=== PATIENT | male | born 1955 | race African-American/Black ===

== ENCOUNTER 2021-08-20 12:15 | Inpatient (IN) | payer OTHER ==
[2021-08-20] MEDS ORDERED: diazePAM 5 MG TABLET PO PRN ×2 (14:33→14:42)
[2021-08-20] MEDS ORDERED: METHOCARBAMOL 500 MG TABLET PO PRN (14:33)
[2021-08-20] MEDS ORDERED: ACETAMINOPHEN 325 MG TABLET (FP) PO PRN ×4 (14:33→14:42)
[2021-08-20] MEDS ORDERED: NICOTINE 10 MG CARTRIDGE (INHALER) IH PRN ×2 (14:33→14:42)
[2021-08-20] MEDS ORDERED: ONDANSETRON *ODT* 4 MG TABLET SL PRN ×2 (14:33→14:42)
[2021-08-20] MEDS ORDERED: MAGNESIUM CITRATE 300 ML BOTTLE PO PRN ×2 (14:33→14:42)
[2021-08-20] MEDS ORDERED: IBUPROFEN 400 MG TABLET (FP) PO PRN (14:33)
[2021-08-20] MEDS ORDERED: BISMUTH SUBSALICYLATE 524 MG/30 ML PO PRN ×2 (14:33→14:42)
[2021-08-20] MEDS ORDERED: MENTHOL/PHENOL 1 EACH UD MM PRN ×2 (14:33→14:42)
[2021-08-20] MEDS ORDERED: MAGNESIUM HYDROX 2400MG/30ML ORAL SUSPENSION 30 ML CUP PO PRN ×2 (14:33→14:42)
[2021-08-20] MEDS ORDERED: MAG HYDROX/AL HYDROX/SIMETH 30 ML UNIT-DOSE CUP PO PRN ×2 (14:33→14:42)
[2021-08-20 15:19] VITALS: BMI 23.2
[2021-08-20] MEDS ORDERED: METHOCARBAMOL 500 MG TABLET ONE (16:36)
[2021-08-20] MEDS: METHOCARBAMOL 500 MG TABLET PO PRN (16:38)
[2021-08-20] MEDS ORDERED: diazePAM 5 MG TABLET PO SCH (17:00)
[2021-08-20] MEDS: diazePAM 5 MG TABLET PO SCH ×2 (18:00→22:40)
[2021-08-20] MEDS ORDERED: hydrOXYzine PAMOATE 25 MG CAPSULE (FP) PO SCH (18:00)
[2021-08-20] MEDS: hydrOXYzine PAMOATE 25 MG CAPSULE (FP) PO SCH ×2 (18:40→22:40)
[2021-08-20] MEDS ORDERED: MELATONIN 5 MG TABLETS PO SCH (22:00)
[2021-08-20] MEDS ORDERED: THIAMINE HCL 100 MG TABLET (FP) PO SCH (22:00)
[2021-08-20] MEDS: THIAMINE HCL 100 MG TABLET (FP) PO SCH (22:39)
[2021-08-20] MEDS: MELATONIN 5 MG TABLETS PO SCH (22:39)
[2021-08-21] MEDS: diazePAM 5 MG TABLET PO SCH ×4 (05:47→23:42)
[2021-08-21] MEDS: hydrOXYzine PAMOATE 25 MG CAPSULE (FP) PO SCH ×5 (05:47→23:43)
[2021-08-21] MEDS: IBUPROFEN 400 MG TABLET (FP) PO PRN (05:59)
[2021-08-21] MEDS: METHOCARBAMOL 500 MG TABLET PO PRN (06:00)
[2021-08-21] MEDS: ABACAVIR/DOLUTEGRAVIR/LAMIVUDI (TRIUMEQ) TABLET -NF PO SCH (07:16)
[2021-08-21] MEDS ORDERED: PRENATAL VITAMINS W/ FOLIC ACID TABLET (FP) PO SCH (10:00)
[2021-08-21] MEDS: PRENATAL VITAMINS W/ FOLIC ACID TABLET (FP) PO SCH (10:54)
[2021-08-21 13:41] LABS: HEMATOCRIT 32.2 % (35.4-49); HEMOGLOBIN 10.8 GM/dL (11.7-16.9); MCH 32.9 pg (25.7-33.7); MCHC 33.4 g/dl (32.0-35.9); MEAN CELL VOLUME 98.4 fl (80-96); MEAN PLT VOLUME 8.6 fl (7.5-11.1); PLATELET COUNT 197 10^3/uL (134-434); RBC 3.28 M/mm3 (4.00-5.60); RDW 13.5 % (11.9-15.9); WHITE BLOOD COUNT 2.8 K/mm3 (4.0-10.0)
[2021-08-21 13:48] LABS: ALBUMIN 2.9 g/dl (3.4-5.0); BLOOD UREA NITROGEN 13.5 mg/dL (7-18); CALCIUM 8.2 mg/dL (8.5-10.1)
[2021-08-21 13:52] LABS: CREATININE 0.9 mg/dL (0.55-1.3)
[2021-08-21 13:54] LABS: BILIRUBIN,TOTAL 0.6 mg/dL (0.2-1); TOT PROT 5.7 g/dl (6.4-8.2)
[2021-08-21] MEDS: MELATONIN 5 MG TABLETS PO SCH (23:42)
[2021-08-21] MEDS: THIAMINE HCL 100 MG TABLET (FP) PO SCH (23:43)
[2021-08-22] MEDS: diazePAM 5 MG TABLET PO SCH ×3 (05:12→23:08)
[2021-08-22] MEDS: hydrOXYzine PAMOATE 25 MG CAPSULE (FP) PO SCH ×5 (05:12→23:08)
[2021-08-22] MEDS ORDERED: diazePAM 5 MG TABLET PO SCH (06:00)
[2021-08-22] MEDS: ABACAVIR/DOLUTEGRAVIR/LAMIVUDI (TRIUMEQ) TABLET -NF PO SCH (07:37)
[2021-08-22] MEDS: IBUPROFEN 400 MG TABLET (FP) PO PRN (08:02)
[2021-08-22] MEDS: PRENATAL VITAMINS W/ FOLIC ACID TABLET (FP) PO SCH (10:43)
[2021-08-22] MEDS: IBUPROFEN 600 MG TABLET (FP) PO PRN (17:28)
[2021-08-22] MEDS: MELATONIN 5 MG TABLETS PO SCH (23:07)
[2021-08-22] MEDS: THIAMINE HCL 100 MG TABLET (FP) PO SCH (23:08)
[2021-08-23] MEDS: diazePAM 5 MG TABLET PO SCH ×2 (05:45→18:05)
[2021-08-23] MEDS: hydrOXYzine PAMOATE 25 MG CAPSULE (FP) PO SCH ×5 (05:45→22:54)
[2021-08-23] MEDS ORDERED: diazePAM 5 MG TABLET PO SCH (06:00)
[2021-08-23] MEDS: ABACAVIR/DOLUTEGRAVIR/LAMIVUDI (TRIUMEQ) TABLET -NF PO SCH (08:28)
[2021-08-23] MEDS: IBUPROFEN 600 MG TABLET (FP) PO PRN ×2 (08:53→18:04)
[2021-08-23] MEDS: PRENATAL VITAMINS W/ FOLIC ACID TABLET (FP) PO SCH (10:36)
[2021-08-23] MEDS: amLODIPine BESYLATE 5 MG TABLET (FP) PO SCH (11:37)
[2021-08-23] MEDS: MELATONIN 5 MG TABLETS PO SCH (22:54)
[2021-08-23] MEDS: THIAMINE HCL 100 MG TABLET (FP) PO SCH (22:54)
[2021-08-24] MEDS: hydrOXYzine PAMOATE 25 MG CAPSULE (FP) PO SCH ×5 (05:36→21:26)
[2021-08-24] MEDS ORDERED: diazePAM 5 MG TABLET PO ONE ×2 (06:00)
[2021-08-24] MEDS: ABACAVIR/DOLUTEGRAVIR/LAMIVUDI (TRIUMEQ) TABLET -NF PO SCH (07:42)
[2021-08-24] MEDS: IBUPROFEN 600 MG TABLET (FP) PO PRN (09:05)
[2021-08-24] MEDS: amLODIPine BESYLATE 5 MG TABLET (FP) PO SCH (10:22)
[2021-08-24] MEDS: PRENATAL VITAMINS W/ FOLIC ACID TABLET (FP) PO SCH (10:22)
[2021-08-24 15:12] VITALS: PULSE 84
[2021-08-24] MEDS: THIAMINE HCL 100 MG TABLET (FP) PO SCH (21:26)
[2021-08-24] MEDS: MELATONIN 5 MG TABLETS PO SCH (21:26)
[2021-08-25] MEDS: hydrOXYzine PAMOATE 25 MG CAPSULE (FP) PO SCH (06:06)
[2021-08-25] MEDS: IBUPROFEN 600 MG TABLET (FP) PO PRN (06:45)
[2021-08-25 07:06] VITALS: BP 140/80; TEMP 98.2
[2021-08-25] MEDS ORDERED: PT OWN MED DRAWER 7, Y5N ONE (09:26)
[2021-08-25] MEDS ORDERED: FLU VACC QS2021-22(6MOS UP)/PF 60 MCG/0.5 ML SYRINGE IM ONE (12:00)
== END 2021-08-25 08:49 | disposition left against medical advice (07) | DRG 894 ==
LOC: YASAS 12:15 → Y6N 16:09 → Y3W 08-24 13:29
PROVIDERS: ADMIT Allergy & Immunology; ATTEND Allergy & Immunology
PROC: HZ42ZZZ Group Counseling for Substance Abuse Treatment, Cognitive-Behavioral (ICD-10-PCS; principal; 2021-08-20)
DX: F10.20 Alcohol dependence, uncomplicated (principal); F11.20 Opioid dependence, uncomplicated; F14.20 Cocaine dependence, uncomplicated; F12.20 Cannabis dependence, uncomplicated; Z21 Asymptomatic human immunodeficiency virus [HIV] infection status; I10 Essential (primary) hypertension; Z96.653 Presence of artificial knee joint, bilateral; Z96.642 Presence of left artificial hip joint; Z86.19 Personal history of other infectious and parasitic diseases
CPT/HCPCS: 36415; 80053; 82962; 85027; 86593; 86780; C9803; U0003; U0005